=== PATIENT | female | born 1950 | race Caucasian/White ===

== ENCOUNTER → 2022-10-27 | Outpatient (CLI) | payer SELFPAY | LOC: M RAD 10:09 | PROVIDERS: ATTEND Surgery | DX: K43.0 Incisional hernia with obstruction, without gangrene (principal) ==

== ENCOUNTER 2022-12-09 06:02 | Day surgery (SDC) | payer SELFPAY ==
[~2022-12-09] VITALS: Ht 152.4 cm; Wt 63.5 kg
[~2022-12-09 06:02] MED LIST: ceFAZolin SOD 2 GM in IV 1 EA IV ONE
[2022-12-09] MEDS ORDERED: LR 1,000 ML IV SCH (06:45)
[2022-12-09] MEDS ORDERED: fentaNYL 100 MCG/2 ML INJECTION As Ordered ONE (07:06)
[2022-12-09] MEDS ORDERED: MIDAZOLAM INJ 2MG/2ML VIAL As Ordered ONE (07:07)
[2022-12-09] MEDS ORDERED: MORPHINE 2 MG/ML 1ML VIAL IV PRN (09:15)
[2022-12-09] MEDS ORDERED: ONDANSETRON 4MG 2ML VIAL IV PRN (09:15)
[2022-12-09] MEDS ORDERED: fentaNYL 100 MCG/2 ML INJECTION IV PRN (09:15)
[2022-12-09] MEDS ORDERED: oxyCODONE 5MG TAB PO PRN (09:15)
[2022-12-09] MEDS ORDERED: METOCLOPRAMIDE INJ 10MG/2ML VIAL IV PRN (09:45)
[2022-12-09] MEDS ORDERED: NORCO, ANEXSIA 5/325MG TABLET (HYDROcodone/ACETAMINOPHEN) PO PRN (10:10)
[2022-12-09] MEDS ORDERED: HYDROmorphone HCL 2MG/ML 1ML VIAL As Ordered ONE (10:25)
[2022-12-09 12:56] VITALS: BP 173/93; TEMP 97; O2SAT 97
== END 2022-12-09 14:02 | disposition home or self-care (01) ==
LOC: M SDC 06:02
PROVIDERS: ATTEND Surgery
DX: K43.0 Incisional hernia with obstruction, without gangrene (principal)
CPT/HCPCS: 49594; J0665; J0690; J1170; J2250; J2405; J2765; J3010; S2900

== ENCOUNTER → 2023-08-12 | Outpatient (CLI) | payer SELFPAY | LOC: M RAD 08:04 | PROVIDERS: ATTEND Surgery | DX: R10.33 Periumbilical pain (principal); R19.05 Periumbilic swelling, mass or lump; K43.9 Ventral hernia without obstruction or gangrene ==

== ENCOUNTER 2023-10-15 11:21 | Day surgery (SDC) | payer SELFPAY ==
[~2023-10-15] VITALS: Ht 154.9 cm; Wt 60.3 kg
[~2023-10-15 11:21] MED LIST changes: +LIDOCAINE 2% 100MG/5ML SDV (FOR ANES.) As Ordered ONE; +ONDANSETRON 4MG 2ML VIAL As Ordered ONE; +ROCURONIUM BROMIDE 50MG/5ML VIAL As Ordered ONE; +SUGAMMADEX SODIUM 500 MG/5 ML VIAL (BRIDION) As Ordered ONE; -ceFAZolin SOD 2 GM in IV 1 EA IV ONE; +propofoL 200 MG/20 ML VIAL As Ordered ONE
[2023-10-15] MEDS ORDERED: fentaNYL 250 MCG/5 ML INJECTION As Ordered ONE (11:23)
[2023-10-15] MEDS ORDERED: MIDAZOLAM INJ 2MG/2ML VIAL As Ordered ONE (11:23)
[2023-10-15] MEDS: LR 1,000 ML IV SCH (12:04)
[2023-10-15] MEDS: ceFAZolin SOD 2 GM in IV 1 EA IV ONE (12:49)
[2023-10-15] MEDS ORDERED: ACETAMINOPHEN 1000MG 100ML IV BAG As Ordered ONE (12:56)
[2023-10-15] MEDS ORDERED: ePHEDrine SULFATE 25 MG/5 ML(5MG/ML) SYRINGE As Ordered ONE (13:10)
[2023-10-15] MEDS ORDERED: GLYCOPYRROLATE INJ 0.2 MG/ML 2 ML VIAL As Ordered ONE (13:11)
[2023-10-15] MEDS ORDERED: fentaNYL 100 MCG/2 ML INJECTION IV PRN (14:05)
[2023-10-15] MEDS: ONDANSETRON 4MG 2ML VIAL IV PRN (14:20)
[2023-10-15] MEDS: oxyCODONE 5MG TAB PO PRN (15:24)
[2023-10-15 16:21] VITALS: BP 168/80; TEMP 97.8; O2SAT 97
== END 2023-10-15 17:15 | disposition home or self-care (01) ==
LOC: M SDC 11:21
PROVIDERS: ATTEND Surgery
DX: K43.2 Incisional hernia without obstruction or gangrene (principal)
CPT/HCPCS: 49615; J0131; J0665; J0690; J1100; J2250; J2405; J3010; S2900